=== PATIENT | female | born 1955 | race African-American/Black ===

== ENCOUNTER 2017-05-27 19:31 | Emergency (ER) | payer OTHER ==
[2017-05-27 20:38] LABS: Basophils % (Auto) 0.9 % (0.0-1.8); Eosinophils % (Auto) 0.3 % (0.0-4.3); Hematocrit 37.1 % (30.3-42.9); Hemoglobin 12.5 gm/dl (10.1-14.3); Mean Corpuscular HGB Conc 34 % (30-34); Mean Corpuscular Hemoglobin 31 pg (28-32); Mean Corpuscular Volume 92 fl (79-97); Platelet Count 192 K/mm3 (140-440); Red Blood Count 4.02 M/mm3 (3.65-5.03); Red Cell Distribution Width 12.8 % (13.2-15.2); White Blood Count 14.6 K/mm3 (4.5-11.0)
[2017-05-27 20:47] LABS: INR 1.08 (0.87-1.13)
[2017-05-27 20:48] LABS: Partial Thromboplastin Time 33.8 Sec. (24.2-36.6)
[2017-05-27 21:01] LABS: Bilirubin,Urine NEG (Negative); Blood,Urine SM (Negative); Ketones,Urine TR mg/dL (Negative); Leukocyte Esterase,Urine MOD (Negative); Mucus,Urine 2+ /HPF; Nitrite,Urine NEG (Negative); Protein,Urine <15 mg/dL mg/dL (Negative); Urobilinogen,Urine < 2.0 mg/dL (<2.0)
[2017-05-27 21:07] LABS: Albumin 3.9 g/dL (3.9-5); Blood Urea Nitrogen 15 mg/dL (7-17); Calcium 8.6 mg/dL (8.4-10.2); Carbon Dioxide 20 mmol/L (22-30); Chloride 97.3 mmol/L (98-107); Glucose 141 mg/dL (65-100); Sodium 133 mmol/L (137-145); Total Protein 7.8 g/dL (6.3-8.2)
[2017-05-27 21:54] LABS: Anion Gap 20 mmol/L
[2017-05-27 21:56] LABS: Potassium 3.8 mmol/L (3.6-5.0)
[2017-05-27 22:15] LABS: Alanine Aminotransferase 90 units/L (7-56)
[2017-05-27 22:16] LABS: Alkaline Phosphatase 80 units/L (35-129)
[2017-05-27 22:17] LABS: Lipase 3 units/L (13-60)
[2017-05-28] MEDS ORDERED: NACL 0.9% 1000 ML 1,000 ML IV ONE (02:50)
[2017-05-28] MEDS: ZOFRAN IV ONE ×2 (03:00→03:01)
--- NOTE | 2017-05-28 04:07 | Emergency Department Report ---
ED Abdominal Pain HPI - General Chief Complaint: Abdominal Pain Stated Complaint: CP,ABD PAIN Time Seen by Provider: 05/28/17 01:37 Source: patient Mode of arrival: Ambulatory Limitations: Language Barrier - History of Present Illness Initial Comments: 61-year-old female with a past medical history of arthritis and elevated cholesterol presents to the hospital with complaints of nausea vomiting and fever since yesterday. Patient has not had any vomiting today. Fever reported yesterday. She complains of ongoing intermittent sharp left lower quadrant pain for several months that is unchanged today. Patient states she has been worked up with no identifiable cause. Today patient developed sternal chest pain that was intermittent, sharp, and nonradiating. Denies shortness of breath or cough. Pain has since completely resolved. Patient saw her primary care doctor Dr. Kiya Urrutia yesterday was started on Levaquin. She received call back to return to the ER for elevated white count of 15,000. Severity scale (0 -10): 4 - Related Data Home Medications Medication Instructions Recorded Confirmed Last Taken Rosuvastatin Calcium [Crestor] 1 tab PO DAILY 05/28/14 05/05/15 05/05/15 Previous Rx's Medication Instructions Recorded Last Taken Type Meclizine [Antivert] 25 mg PO TID PRN #20 tablet 05/05/15 Unknown Rx Ondansetron [Zofran Odt] 4 mg PO Q8HR PRN #20 tab.rapdis 05/28/17 Unknown Rx Allergies Allergy/AdvReac Type Severity Reaction Status Date / Time No Known Allergies Allergy Verified 05/29/14 07:00 ED Review of Systems ROS: Stated complaint: CP,ABD PAIN Other details as noted in HPI Comment: All other systems reviewed and negative Other: \Constitutional: No fevers chills Eyes: No eye pain visual changes ENT: No ear pain or throat pain Neck: Denies pain Respiratory: Denies cough wheezing shortness of breath Cardiovascular: Denies palpitations, syncope GI: As per HPI : Denies dysuria Musculoskeletal: Denies back pain Skin: Denies rash, lesions, erythema Neurologic: Denies headache, numbness, weakness Psychiatric: Denies suicidal ideation, hallucinations ED Past Medical Hx - Past Medical History Previous Medical History?: Yes Hx Arthritis: Yes Hx Asthma: (not since 10 years) Hx COPD: No Hx Tuberculosis: No Additional medical history: High cholesterol - Surgical History Past Surgical History?: No - Social History Smoking Status: Never Smoker Substance Use Type: None - Medications Home Medications: Home Medications Medication Instructions Recorded Confirmed Last Taken Type Rosuvastatin Calcium [Crestor] 1 tab PO DAILY 05/28/14 05/05/15 05/05/15 History Meclizine [Antivert] 25 mg PO TID PRN #20 tablet 05/05/15 Unknown Rx Ondansetron [Zofran Odt] 4 mg PO Q8HR PRN #20 tab.rapdis 05/28/17 Unknown Rx ED Physical Exam - General Limitations: Language Barrier - Other Other exam information: General: No limitations, patient is alert in no acute distress Head exam: Atraumatic, normocephalic Eyes exam: Normal appearance, pupils equal reactive to light, extraocular movements intact ENT: Moist mucous membrane, normal oropharynx Neck exam: Normal inspection, full range of motion, no meningismus nontender Respiratory exam: Clear to auscultation bilateral, no wheezes, rales, crackles. Reproducible chest wall tenderness just to the right of the distal sternum Cardiovascular: Normal rate and rhythm, normal heart sounds Abdomen: Soft, nondistended, and nontender, with normal bowel sounds, no rebound, or guarding Extremity: Full range of motion normal inspection no deformity Back: Normal Inspection, full range of motion, no tenderness Neurologic: Alert, oriented x3, cranial nerves intact, no motor or sensory deficit Psychiatric: normal affect, normal mood Skin: Warm, dry, intact ED Course Vital Signs 05/27/17 05/28/17 05/28/17 19:41 00:48 00:50 Temperature 98.4 F Pulse Rate 94 H 80 78 Respiratory 20 18 18 Rate Blood Pressure Blood Pressure 147/82 [Right] O2 Sat by Pulse 99 97 97 Oximetry 05/28/17 05/28/17 05/28/17 01:01 01:11 01:12 Temperature Pulse Rate 79 76 78 Respiratory 17 16 16 Rate Blood Pressure 139/73 139/73 Blood Pressure 139/73 [Right] O2 Sat by Pulse 98 98 97 Oximetry 05/28/17 05/28/17 05/28/17 01:21 01:31 01:41 Temperature Pulse Rate 78 74 72 Respiratory 15 14 13 Rate Blood Pressure 139/73 139/73 139/73 Blood Pressure [Right] O2 Sat by Pulse 99 98 99 Oximetry 05/28/17 05/28/17 05/28/17 01:51 02:00 02:11 Temperature Pulse Rate 72 71 72 Respiratory 17 16 14 Rate Blood Pressure 139/73 123/70 123/70 Blood Pressure [Right] O2 Sat by Pulse 97 98 98 Oximetry 05/28/17 05/28/17 05/28/17 02:20 02:31 02:41 Temperature Pulse Rate 66 69 73 Respiratory 14 17 17 Rate Blood Pressure 123/70 123/70 123/70 Blood Pressure [Right] O2 Sat by Pulse 98 98 98 Oximetry 05/28/17 05/28/17 05/28/17 02:51 03:19 03:21 Temperature Pulse Rate 68 80 73 Respiratory 13 15 13 Rate Blood Pressure 123/70 123/70 123/70 Blood Pressure [Right] O2 Sat by Pulse 98 95 99 Oximetry 05/28/17 05/28/17 05/28/17 03:31 03:41 03:51 Temperature Pulse Rate 71 123 H 78 Respiratory 14 18 Rate Blood Pressure 123/70 123/70 123/70 Blood Pressure [Right] O2 Sat by Pulse 100 94 99 Oximetry 05/28/17 04:00 Temperature Pulse Rate 72 Respiratory 12 Rate Blood Pressure 142/78 Blood Pressure [Right] O2 Sat by Pulse 98 Oximetry - Reevaluation(s) Reevaluation #1: 05/28/17 04:03 Patient is pain free. Normal saline and Zofran ordered - Consultations Consultation #1: 05/28/17 05:30 case d/w DR Kirk, since pt does not have any inflammation or rlq pain close f/ u will be suggeted. ED Medical Decision Making - Lab Data Result diagrams: 05/27/17 19:59 05/27/17 19:59 Lab Results 05/27/17 05/27/17 05/27/17 Range/Units 19:59 19:59 19:59 WBC 14.6 H (4.5-11.0) K/mm3 RBC 4.02 (3.65-5.03) M/mm3 Hgb 12.5 (10.1-14.3) gm/dl Hct 37.1 (30.3-42.9) % MCV 92 (79-97) fl MCH 31 (28-32) pg MCHC 34 (30-34) % RDW 12.8 L (13.2-15.2) % Plt Count 192 (140-440) K/mm3 Lymph % (Auto) 12.8 L (13.4-35.0) % [place] % (Auto) 7.0 (0.0-7.3) % Eos % (Auto) 0.3 (0.0-4.3) % Baso % (Auto) 0.9 (0.0-1.8) % Lymph # 1.9 (1.2-5.4) K/mm3 [place] # 1.0 H (0.0-0.8) K/mm3 Eos # 0.0 (0.0-0.4) K/mm3 Baso # 0.1 (0.0-0.1) K/mm3 Seg Neutrophils % 79.0 H (40.0-70.0) % Seg Neutrophils # 11.5 H (1.8-7.7) K/mm3 PT 13.9 (12.2-14.9) Sec. INR 1.08 (0.87-1.13) APTT 33.8 (24.2-36.6) Sec. VBG pH (7.320-7.420) Sodium 133 L (137-145) mmol/L Potassium 3.8 (3.6-5.0) mmol/L Chloride 97.3 L (98-107) mmol/L Carbon Dioxide 20 L (22-30) mmol/L Anion Gap 20 mmol/L BUN 15 (7-17) mg/dL Creatinine 0.5 L (0.7-1.2) mg/dL Estimated GFR > 60 ml/min BUN/Creatinine Ratio 30.00 % Glucose 141 H (65-100) mg/dL Lactic Acid (0.7-2.0) mmol/L Calcium 8.6 (8.4-10.2) mg/dL Total Bilirubin 0.50 (0.1-1.2) mg/dL AST 32 (5-40) units/L ALT 90 H (7-56) units/L Alkaline Phosphatase 80 (35-129) units/L Troponin T < 0.010 (0.00-0.029) ng/mL Total Protein 7.8 (6.3-8.2) g/dL Albumin 3.9 (3.9-5) g/dL Albumin/Globulin Ratio 1.0 % Lipase 3 L (13-60) units/L Urine Color (Yellow) Urine Turbidity (Clear) Urine pH (5.0-7.0) Ur Specific [place] (1.003-1.030) Urine Protein (Negative) mg/dL Urine Glucose (UA) (Negative) mg/dL Urine Ketones (Negative) mg/dL Urine Blood (Negative) Urine Nitrite (Negative) Urine Bilirubin (Negative) Urine Urobilinogen (<2.0) mg/dL Ur Leukocyte Esterase (Negative) Urine WBC (Auto) (0.0-6.0) /HPF Urine RBC (Auto) (0.0-6.0) /HPF U Epithel Cells (Auto) (0-13.0) /HPF Urine Mucus /HPF 05/27/17 05/27/17 05/27/17 Range/Units 19:59 19:59 20:55 WBC (4.5-11.0) K/mm3 RBC (3.65-5.03) M/mm3 Hgb (10.1-14.3) gm/dl Hct (30.3-42.9) % MCV (79-97) fl MCH (28-32) pg MCHC (30-34) % RDW (13.2-15.2) % Plt Count (140-440) K/mm3 Lymph % (Auto) (13.4-35.0) % Dodge % (Auto) (0.0-7.3) % Eos % (Auto) (0.0-4.3) % Baso % (Auto) (0.0-1.8) % Lymph # (1.2-5.4) K/mm3 [place] # (0.0-0.8) K/mm3 Eos # (0.0-0.4) K/mm3 Baso # (0.0-0.1) K/mm3 Seg Neutrophils % (40.0-70.0) % Seg Neutrophils # (1.8-7.7) K/mm3 PT (12.2-14.9) Sec. INR (0.87-1.13) APTT (24.2-36.6) Sec. VBG pH 7.471 H (7.320-7.420) Sodium (137-145) mmol/L Potassium (3.6-5.0) mmol/L Chloride (98-107) mmol/L Carbon Dioxide (22-30) mmol/L Anion Gap mmol/L BUN (7-17) mg/dL Creatinine (0.7-1.2) mg/dL Estimated GFR ml/min BUN/Creatinine Ratio % Glucose (65-100) mg/dL Lactic Acid 1.00 (0.7-2.0) mmol/L Calcium (8.4-10.2) mg/dL Total Bilirubin (0.1-1.2) mg/dL AST (5-40) units/L ALT (7-56) units/L Alkaline Phosphatase (35-129) units/L Troponin T < 0.010 (0.00-0.029) ng/mL Total Protein (6.3-8.2) g/dL Albumin (3.9-5) g/dL Albumin/Globulin Ratio % Lipase (13-60) units/L Urine Color (Yellow) Urine Turbidity (Clear) Urine pH (5.0-7.0) Ur Specific [place] (1.003-1.030) Urine Protein (Negative) mg/dL Urine Glucose (UA) (Negative) mg/dL Urine Ketones (Negative) mg/dL Urine Blood (Negative) Urine Nitrite (Negative) Urine Bilirubin (Negative) Urine Urobilinogen (<2.0) mg/dL Ur Leukocyte Esterase (Negative) Urine WBC (Auto) (0.0-6.0) /HPF Urine RBC (Auto) (0.0-6.0) /HPF U Epithel Cells (Auto) (0-13.0) /HPF Urine Mucus /HPF 05/27/17 05/28/17 Range/Units Unknown 01:56 WBC (4.5-11.0) K/mm3 RBC (3.65-5.03) M/mm3 Hgb (10.1-14.3) gm/dl Hct (30.3-42.9) % MCV (79-97) fl MCH (28-32) pg MCHC (30-34) % RDW (13.2-15.2) % Plt Count (140-440) K/mm3 Lymph % (Auto) (13.4-35.0) % Dodge % (Auto) (0.0-7.3) % Eos % (Auto) (0.0-4.3) % Baso % (Auto) (0.0-1.8) % Lymph # (1.2-5.4) K/mm3 [place] # (0.0-0.8) K/mm3 Eos # (0.0-0.4) K/mm3 Baso # (0.0-0.1) K/mm3 Seg Neutrophils % (40.0-70.0) % Seg Neutrophils # (1.8-7.7) K/mm3 PT (12.2-14.9) Sec. INR (0.87-1.13) APTT (24.2-36.6) Sec. VBG pH (7.320-7.420) Sodium (137-145) mmol/L Potassium (3.6-5.0) mmol/L Chloride (98-107) mmol/L Carbon Dioxide (22-30) mmol/L Anion Gap mmol/L BUN (7-17) mg/dL Creatinine (0.7-1.2) mg/dL Estimated GFR ml/min BUN/Creatinine Ratio % Glucose (65-100) mg/dL Lactic Acid (0.7-2.0) mmol/L Calcium (8.4-10.2) mg/dL Total Bilirubin (0.1-1.2) mg/dL AST (5-40) units/L ALT (7-56) units/L Alkaline Phosphatase (35-129) units/L Troponin T < 0.010 (0.00-0.029) ng/mL Total Protein (6.3-8.2) g/dL Albumin (3.9-5) g/dL Albumin/Globulin Ratio % Lipase (13-60) units/L Urine Color Yellow (Yellow) Urine Turbidity Clear (Clear) Urine pH 6.0 (5.0-7.0) Ur Specific [place] 1.020 (1.003-1.030) Urine Protein <15 mg/dl (Negative) mg/dL Urine Glucose (UA) Neg (Negative) mg/dL Urine Ketones Tr (Negative) mg/dL Urine Blood Sm (Negative) Urine Nitrite Neg (Negative) Urine Bilirubin Neg (Negative) Urine Urobilinogen < 2.0 (<2.0) mg/dL Ur Leukocyte Esterase Mod (Negative) Urine WBC (Auto) 7.0 H (0.0-6.0) /HPF Urine RBC (Auto) 5.0 (0.0-6.0) /HPF U Epithel Cells (Auto) < 1.0 (0-13.0) /HPF Urine Mucus 2+ /HPF - EKG Data -: EKG Interpreted by Me (sinus rate 92 septal infarct) - EKG Data When compared to previous EKG there are: no significant change (compared to ) - Radiology Data Radiology results: report reviewed (CT a/p IV contrast: Retrocecal appendix upper limits of normal. No stranding or edema. May represent early appendicitis. Clinical correlation, repeat examination may be indicated. Cholelithiasis), image reviewed (cxxr: naf) - Medical Decision Making Patient denies right lower cause her pain upon repeat questioning with interpretation. Patient has actually no abdominal pain during examination here and with repeat examinations to right lower quadrant remains pain-free. She only complains of intermittent and chronic left abdominal pain. No pain meds given during ED stay and patient remained pain-free in the right lower quadrant. Patient is currently on Levaquin and has a mild urine leukocytosis. Patient is tolerating by mouth. She will be discharged and encouraged to follow -up with her primary care doctor BRYNN. It is the weekend and therefore very strict instructions to return to the ER if symptoms worsen and or if she develops right lower quadrant pain. Chest pain appears to be reproducible on palpation. - Differential Diagnosis uti, pneumonia, viral syndrome, diverticulitis Critical Care Time: No Critical care attestation.: If time is entered above; I have spent that time in minutes in the direct care of this critically ill patient, excluding procedure time. ED Disposition Clinical Impression: Vomiting, Fever, Urine leukocytes increased, Chest wall pain, Cholelithiasis Disposition: DC-01 TO HOME OR SELFCARE Is pt being admited?: No Does the pt Need Aspirin: No Condition: Stable Instructions: Abdominal Pain (ED), Urinary Tract Infection in Women (ED), Chest Pain (ED) Additional Instructions: Please return immediately if you developed pain in the right lower abdomen as discussed. Otherwise continue your antibiotics and take the nausea medication as needed. Your sodium was low. You were treated with normal saline. Take a copy of the lab were provided to your for further evaluation and treatment. Prescriptions: Ondansetron [Zofran Odt] 4 mg PO Q8HR PRN #20 tab.rapdis PRN Reason: Nausea And Vomiting Referrals: CHRISTOPHER URRUTIA MD [Staff Physician] - [facility] Time of Disposition: 05:40
[2017-05-28 04:19] VITALS: BP 142/78
--- NOTE | 2017-05-28 04:37 | Cat Scan Report ---
FINAL REPORT EXAM: CT ABDOMEN PELVIS W CON HISTORY: llq pain, fever, vomiting TECHNIQUE: CT images are acquired through the Abdomen and Pelvis following intravenous administration of contrast. Transaxial, coronal and sagittal reformations are provided. PRIORS: None FINDINGS: Partially visualized intrathoracic contents are unremarkable. Cholelithiasis without pericholecystic inflammatory findings. The liver, pancreas, spleen, and adrenal glands are unremarkable. Kidneys show no worrisome lesions, hydronephrosis, or calculi. Urinary bladder is without intraluminal stones. Small and large bowel are normal in caliber. Appendix is at the upper limit of normal in caliber without specific periappendiceal stranding or fluid. No free air, free fluid, or lymphadenopathy identified. Aorta is normal in course and caliber. Anteverted uterus. No free fluid in the pelvis. Superficial soft tissues are unremarkable. No acute or aggressive appearing skeletal findings. IMPRESSION: No specific finding to explain patient's left lower quadrant pain. The retrocecal appendix measures at the upper limit of normal in caliber and appears fluid-filled but is without. Appendiceal stranding or edema. Findings may represent normal anatomy for this patient or early acute appendicitis in the proper clinical setting. Correlation for point tenderness in the right lower quadrant is requested. Short interval repeat examination with oral/rectal contrast could be considered if clinical picture is equivocal. Cholelithiasis. Notification initiated via [facility] client support manager immediately following the exam.
--- NOTE | 2017-05-28 09:35 | XRay Report ---
Chest 2 views: History: Chest pain. Findings: Borderline cardiomegaly. Trachea is midline. No consolidation, pneumothorax or pleural effusion. Impression: No acute cardiopulmonary findings.
== END 2017-05-28 06:26 | disposition home or self-care (01) ==
LOC: ED 19:31
DX: K80.20 Calculus of gallbladder without cholecystitis without obstruction (principal); R07.89 Other chest pain; R82.99 Other abnormal findings in urine; E78.00 Pure hypercholesterolemia, unspecified
CPT/HCPCS: 36415; 71020; 74177; 80053; 81001; 82140; 82805; 83690; 84484; 85025; 85610; 85730; 87040; 87086; 93005; 93010; 96360; 99285; J2405; J7030; Q9967

== ENCOUNTER 2019-04-25 10:12 | Day surgery (SDC) | payer MEDICARE, OTHER ==
[2019-04-25] MEDS ORDERED: NACL 0.9% 1000 ML 1,000 ML IV SCH (11:00)
--- NOTE | 2019-04-25 11:25 | Anesthesia Day of Surgery ---
Anesthesia Day of Surgery - Day of Surgery Patient Examined: Yes Patient H&P Reviewed: Yes Patient is NPO: Yes Beta Blockers: No Cardiac Clearance: No Pulmonary Clearance: No
--- NOTE | 2019-04-25 11:26 | Anesthesia Consultation ---
Anesthesia Consult and Med Hx Date of service: 04/25/19 - Airway Anesthetic Teeth Evaluation: Good ROM Head & Neck: Adequate Mental/Hyoid Distance: Adequate Mallampati Class: Class III Intubation Access Assessment: Good - Pulmonary Exam CTA: Yes - Cardiac Exam Cardiac Exam: No Murmur - Pre-Operative Health Status ASA Pre-Surgery Classification: ASA3 Proposed Anesthetic Plan: MAC - Pulmonary Hx Smoking: No Hx Asthma: (not since 10 years) COPD: No Hx Pneumonia: No Hx Sleep Apnea: No - Cardiovascular System Hx Hypertension: Yes
[2019-04-25] MEDS ORDERED: DIPRIVAN 10 MG/ML IV ONE ×2 (11:28→11:29)
[2019-04-25] MEDS ORDERED: VERSED ONE (11:28)
[2019-04-25] MEDS ORDERED: XYLOCAINE 2% INFILTRATI ONE (11:45)
--- NOTE | 2019-04-25 12:10 | Procedure Note ---
Date of procedure: 04/25/19 Pre-op diagnosis: GERD/ Colon Polyp Screening Post-op diagnosis: other (Mild,Distal Esophagitis/Gastritis/ No Colon Polyps now/ No Diverticular Disease/Minor,Internal Hemorrhoid) Procedure: EGD with Biopsy/ Colonoscopy Anesthesia: MAC Surgeon: BOB FERREIRA Estimated blood loss: minimal Pathology: list Specimen disposition: to lab Condition: stable Disposition: same day (Treat with PPI. Avoid aspirin and NSAID for 5 days and follow up in 1 to 2 weeks ([phone]).)
--- NOTE | 2019-04-25 12:32 | Operative Report ---
PROCEDURE: EGD with biopsy. INDICATIONS: This is a 63-year-old [place] female who has lately been having GERD symptoms. EGD was done to assess for the problem. DESCRIPTION OF PROCEDURE: The procedure was done after getting informed consent with MAC anesthesia. Instrument was passed through the hypopharynx into the esophagus, which showed some mild distal esophagitis. Stomach showed some mild gastritis. Biopsy was done from the gastric antrum, gastric body and angularis to rule out for H. pylori and atrophic gastritis. The pylorus was patent. The duodenum in the first and second portion appeared normal. There was minimal bleeding from the biopsy sites and no complications associated with the procedure. ASSESSMENT: Gastroesophageal reflux disease symptoms, mild distal esophagitis, gastritis. No peptic ulcer disease noted. PLAN: Treat the patient with PPI. Avoid aspirin and aspirin-related products. A colonoscopy will be done for further assessment for colon polyps since the patient has a prior history of tubular adenoma and the patient will be asked to follow up in the office in 1-2 weeks' time. RNMarlen was in the room throughout the entirety of the procedure. JOB# [id number] BETH/DARCY
[2019-04-25 12:50] VITALS: BP 120/63
--- NOTE | 2019-04-25 18:54 | Operative Report ---
PROCEDURE: Colonoscopy. INDICATIONS: This is a 63-year-old [place] Citizen female with a prior history of colon polyp of the tubular adenoma type. Last colonoscopy was done several years ago. EGD done prior to the colonoscopy showed presence of mild distal esophagitis and gastritis, but no evidence of any peptic ulcer disease. DESCRIPTION OF PROCEDURE: Procedure was done after getting informed consent with MAC anesthesia. Initial rectal exam was unremarkable. Instrument was passed through the rectum onto the cecum, which was identified with the ileocecal valve and the appendiceal orifice. Visualization was fair. Cecum, ascending colon, transverse colon, descending colon, and sigmoid likewise showed normal mucosa. There were no polyps during this exam. There is no evidence of any diverticular disease or colitis, and the rectum showed some minor internal hemorrhoids on the retroverted view. There is no bleeding associated with the procedure. No complications associated with the procedure. ASSESSMENT: Colon polyp screening, prior history of colon polyp of the tubular adenoma type, no colon polyps at present. Minor internal hemorrhoids. There was no bleeding or complications associated with the procedure. The patient will be placed on PPI because of the upper GI findings of mild distal esophagitis and gastritis and asked to follow up in the office in 1-2 weeks' time. RN, Marlen Rothman, was in the room throughout the entirety of the procedure. JOB# [id number] BETH/DARCY
== END 2019-04-25 10:13 | disposition home or self-care (01) ==
LOC: GIO 10:12
DX: Z12.11 Encounter for screening for malignant neoplasm of colon (principal); K29.50 Unspecified chronic gastritis without bleeding; K64.8 Other hemorrhoids; K21.0 Gastro-esophageal reflux disease with esophagitis; E78.00 Pure hypercholesterolemia, unspecified; I10 Essential (primary) hypertension; J45.909 Unspecified asthma, uncomplicated; M19.90 Unspecified osteoarthritis, unspecified site; Z86.010 Personal history of colon polyps; Z79.899 Other long term (current) drug therapy
CPT/HCPCS: 43239; 88305; 88342; G0105; J2250; J2704; J7030